=== PATIENT | male | born 2000 | race Caucasian/White ===

== ENCOUNTER 2019-02-18 08:18 | Day surgery (SDC) | payer BC ==
[2019-02-18] MEDS ORDERED: PROPOFOL 20 ML (09:00)
[2019-02-18] MEDS ORDERED: ONDANSETRON 4 MG INJ IV (09:00)
[2019-02-18] MEDS ORDERED: MEPERIDINE 25 MG INJ IV (09:00)
[2019-02-18] MEDS ORDERED: ALBUTEROL 0.083% (NEB) 2.5 MG/3 ML AMP HHN (09:00)
[2019-02-18] MEDS ORDERED: OXYCODONE/ACETAMINOPHEN (5/325) TAB PO ×2 (09:00)
[2019-02-18] MEDS ORDERED: FENTAnyl 50 MCG/ML VIAL IV ×3 (09:00)
[2019-02-18] MEDS ORDERED: LIDOCAINE 2% (SDV) 5 ML INJ (09:00)
[2019-02-18] MEDS ORDERED: FENTAnyl 50 MCG/ML VIAL (09:00)
[2019-02-18] MEDS ORDERED: MIDAZOLAM 1 MG/ML 2 ML INJ (09:00)
[2019-02-18] MEDS ORDERED: METOCLOPRAMIDE 10 MG INJ (09:34)
[2019-02-18] MEDS ORDERED: DEXAMETHASONE 4 MG/ML 5 ML INJ (09:34)
[2019-02-18] MEDS ORDERED: ONDANSETRON 4 MG INJ (09:34)
[2019-02-18] MEDS ORDERED: FAMOTIDINE 20 MG INJ (09:35)
[2019-02-18] MEDS: BUPIVACAINE 0.5%/EPI (SDV) 10 ML INJ (09:44)
[2019-02-18] MEDS ORDERED: IBUPROFEN 600 MG TAB PO (11:30)
== END 2019-02-18 11:52 | disposition home or self-care (01) ==
LOC: SDS 08:18
DX: L72.0 Epidermal cyst (principal)
CPT/HCPCS: 11441; 88307